=== PATIENT | female | born 1985 | race Caucasian/White ===

== ENCOUNTER → 2017-06-17 | Outpatient (CLI) | payer SELFPAY ==
[2017-06-17 18:44] LABS: HCG, SERUM QUANTITATIVE 1849 MIU/ML
== END ==
LOC: M LAB 16:35
DX: O20.0 Threatened abortion (principal)

== ENCOUNTER → 2017-06-19 | Outpatient (CLI) | payer SELFPAY ==
[2017-06-19 17:00] LABS: HCG, SERUM QUANTITATIVE 646 MIU/ML
== END ==
LOC: M LAB 16:22
DX: O20.0 Threatened abortion (principal)
CPT/HCPCS: 84702

== ENCOUNTER → 2017-06-26 | Outpatient (CLI) | payer OTHER ==
[2017-06-27 09:56] LABS: HCG, SERUM QUANTITATIVE 58 MIU/ML
== END ==
LOC: M LAB 14:17
DX: O03.4 Incomplete spontaneous abortion without complication (principal)
CPT/HCPCS: 84702

== ENCOUNTER → 2017-09-27 | Outpatient (CLI) | payer OTHER ==
[2017-09-27 18:50] LABS: BASO % 0.2 % (0.0-1.0); EOS # 0.2 10^3/uL (0.0-0.50); EOS % 1.8 % (0.0-3.0); HEMATOCRIT 36.3 % (36.0-47.0); HEMOGLOBIN 12.5 g/dl (12.0-15.5); IMMATURE GRANULOCYTE % 0.6 % (0-3.0); LYMPH # 2.3 10^3/uL (1.5-4.5); LYMPH % 25.7 % (24.0-44.0); MEAN CORPUSCULAR HEMOGLOBIN 30.9 pg (27.0-33.0); MEAN CORPUSCULAR HGB CONC 34.4 g/dl (32.0-36.5); MEAN CORPUSCULAR VOLUME 89.9 fl (80.0-96.0); MONO # 0.7 10^3/uL (0.0-0.8); NEUTROPHILS # 5.7 10^3/uL (1.8-7.7); NEUTROPHILS % 63.7 % (36.0-66.0); PLATELET COUNT, AUTOMATED 241 10^3/uL (150-450); RED BLOOD COUNT 4.04 10^6/uL (4.00-5.40)
[2017-09-27 20:43] LABS: CHLAMYDIA DNA AMPLIFICATION NEGATIVE (NEGATIVE); GC DNA AMPLIFICATION NEGATIVE (NEGATIVE)
== END ==
LOC: M SMT 15:07
DX: Z36.9 Encounter for antenatal screening, unspecified (principal); Z3A.01 Less than 8 weeks gestation of pregnancy
CPT/HCPCS: 86762

== ENCOUNTER → 2018-01-16 | Outpatient (CLI) | payer OTHER ==
[2018-01-16 13:00] LABS: HEMATOCRIT 34.6 % (36.0-47.0); HEMOGLOBIN 11.5 g/dl (12.0-15.5); MEAN CORPUSCULAR HEMOGLOBIN 30.2 pg (27.0-33.0); MEAN CORPUSCULAR HGB CONC 33.2 g/dl (32.0-36.5); MEAN CORPUSCULAR VOLUME 90.8 fl (80.0-96.0); PLATELET COUNT, AUTOMATED 242 10^3/uL (150-450); RED BLOOD COUNT 3.81 10^6/uL (4.00-5.40); RED CELL DISTRIBUTION WIDTH 12.7 % (11.5-14.5); WHITE BLOOD COUNT 10.5 10^3/uL (4.0-10.0)
[2018-01-16 13:36] LABS: GLUCOSE CHALLENGE TEST 1 HOUR 95 MG/DL (LESS THAN 140)
== END ==
LOC: M SMT 10:18
DX: Z36.89 Encounter for other specified antenatal screening (principal); Z3A.00 Weeks of gestation of pregnancy not specified
CPT/HCPCS: 82950

== ENCOUNTER → 2018-03-21 | Outpatient (REF) | payer OTHER | LOC: M LAB REF 16:58 | DX: Z34.83 Encounter for supervision of other normal pregnancy, third trimester (principal) ==

== ENCOUNTER 2018-04-22 00:42 | Inpatient (IN) | payer OTHER ==
[2018-04-22 01:46] LABS: HEMATOCRIT 40.4 % (36.0-47.0); HEMOGLOBIN 13.1 g/dl (12.0-15.5); MEAN CORPUSCULAR HEMOGLOBIN 27.9 pg (27.0-33.0); MEAN CORPUSCULAR HGB CONC 32.4 g/dl (32.0-36.5); MEAN CORPUSCULAR VOLUME 86.1 fl (80.0-96.0); PLATELET COUNT, AUTOMATED 240 10^3/uL (150-450); RED BLOOD COUNT 4.69 10^6/uL (4.00-5.40); RED CELL DISTRIBUTION WIDTH 14.7 % (11.5-14.5)
[2018-04-22] MEDS ORDERED: OXYTOCIN 30 UNITS IN 0.9% NaCl 500ML IV BAG (J2590) As Ordered (05:15)
[2018-04-22] MEDS: LIDOCAINE 1% MDV 20ML VIAL INFIL (06:20)
[2018-04-22] MEDS ORDERED: ACETAMINOPHEN 500 MG TAB PO (07:00)
[2018-04-22] MEDS ORDERED: DOCUSATE SODIUM 100 MG CAP PO (07:00)
[2018-04-22] MEDS ORDERED: DIBUCAINE 1% OINTMENT 30GM TOP (07:00)
[2018-04-22] MEDS ORDERED: IBUPROFEN 800 MG TAB PO (07:00)
[2018-04-22] MEDS ORDERED: METHYLERGONOVINE MALEATE 0.2 MG TAB PO (07:00)
[2018-04-22] MEDS: RHOGAM 300 MCG (1500 IU) INJ (J2790) IM (08:30)
[2018-04-22] MEDS: MEASLES,MUMPS,RUBELLA VACCINE INJ (MMR-II) (90707) SC (08:30)
[2018-04-22] MEDS: PRENATAL VITAMINS CHEWABLE TABLET PO (09:00)
[2018-04-23] MEDS: PRENATAL VITAMINS CHEWABLE TABLET PO (09:00)
== END 2018-04-23 11:05 | disposition home or self-care (01) | DRG 807 ==
LOC: M LDO 00:42 → M LDI 01:23 → M OBS 07:45
PROVIDERS: Advanced Practice Midwife
PROC: 10E0XZZ Delivery of Products of Conception, External Approach (ICD-10-PCS; principal; 2018-04-22)
PROC: 0HQ9XZZ Repair Perineum Skin, External Approach (ICD-10-PCS; 2018-04-22)
PROC: 10907ZC Drainage of Amniotic Fluid, Therapeutic from Products of Conception, Via Natural or Artificial Opening (ICD-10-PCS; 2018-04-22)
DX: O48.0 Post-term pregnancy (principal); Z37.0 Single live birth; Z3A.40 40 weeks gestation of pregnancy; O77.0 Labor and delivery complicated by meconium in amniotic fluid; O76 Abnormality in fetal heart rate and rhythm complicating labor and delivery; O70.0 First degree perineal laceration during delivery

== ENCOUNTER → 2018-07-25 | Outpatient (REF) | payer OTHER ==
[~2018-07-25] MED LIST: ACET50TA PO; ANUS2.5C2 TOP; COLACE PO; IBUP100SUS PO; IBUP1TAB7 PO; MAPA500T2 PO; MILKSUS PO; PRENTAB9 PO
[2018-07-27 18:42] LABS: HPV HYBRID CAPTURE II Negative (Negative)
== END ==
LOC: M LAB REF 13:02
PROVIDERS: ATTEND Advanced Practice Midwife
DX: Z12.4 Encounter for screening for malignant neoplasm of cervix (principal)
CPT/HCPCS: 87624; G0123

== ENCOUNTER → 2021-05-05 | Outpatient (CLI) | payer OTHER ==
[~2021-05-05] MED LIST changes: -ACET50TA PO; +IBUP100S44 PO; -IBUP100SUS PO; +MAPA500T17 PO
[2021-05-05 17:59] LABS: HEMATOCRIT 32.4 % (36.0-47.0); HEMOGLOBIN 11.4 g/dl (12.0-15.5); MEAN CORPUSCULAR HEMOGLOBIN 31.3 pg (27.0-33.0); MEAN CORPUSCULAR HGB CONC 35.2 g/dl (32.0-36.5); PLATELET COUNT, AUTOMATED 220 10^3/uL (150-450); RED BLOOD COUNT 3.64 10^6/uL (4.00-5.40); WHITE BLOOD COUNT 10.5 10^3/uL (4.0-10.0)
[2021-05-05 22:05] LABS: HEPATITIS C VIRUS ABY INDEX 0.1 INDEX (<0.8); HIV 1&2 SCREEN CENTAUR NEGATIVE (NEGATIVE)
[2021-05-06 13:23] LABS: GC DNA AMPLIFICATION NEGATIVE (NEGATIVE)
== END ==
LOC: M PLALAB 15:30
PROVIDERS: ATTEND Advanced Practice Midwife
DX: O09.529 Supervision of elderly multigravida, unspecified trimester (principal)

== ENCOUNTER → 2021-05-26 | Outpatient (CLI) | payer OTHER | LOC: M WHC 13:59 | PROVIDERS: ATTEND Advanced Practice Midwife | DX: O09.529 Supervision of elderly multigravida, unspecified trimester (principal); Z3A.18 18 weeks gestation of pregnancy ==

== ENCOUNTER → 2021-08-24 | Outpatient (CLI) | payer OTHER ==
[2021-08-24 17:50] LABS: HEMATOCRIT 32.5 % (36.0-47.0); HEMOGLOBIN 10.7 g/dl (12.0-15.5); MEAN CORPUSCULAR HEMOGLOBIN 29.7 pg (27.0-33.0); MEAN CORPUSCULAR HGB CONC 32.9 g/dl (32.0-36.5); MEAN CORPUSCULAR VOLUME 90.3 fl (80.0-96.0); PLATELET COUNT, AUTOMATED 211 10^3/uL (150-450); WHITE BLOOD COUNT 11.7 10^3/uL (4.0-10.0)
== END ==
LOC: M PLALAB 14:45
PROVIDERS: ATTEND Advanced Practice Midwife
DX: Z34.93 Encounter for supervision of normal pregnancy, unspecified, third trimester (principal)

== ENCOUNTER → 2021-09-01 | Outpatient (CLI) | payer OTHER | LOC: M LAB 08:22 | PROVIDERS: ATTEND Advanced Practice Midwife | DX: O99.810 Abnormal glucose complicating pregnancy (principal) ==

== ENCOUNTER → 2021-09-22 | Outpatient (REF) | payer OTHER | LOC: M PLALAB 15:13 | PROVIDERS: ATTEND Obstetrics & Gynecology | DX: Z36.89 Encounter for other specified antenatal screening (principal); Z3A.36 36 weeks gestation of pregnancy ==

== ENCOUNTER → 2021-09-22 | Outpatient (REF) | payer OTHER | LOC: M SFHCWAGY 16:55 | PROVIDERS: ATTEND Obstetrics & Gynecology | DX: Z36.89 Encounter for other specified antenatal screening (principal); Z3A.36 36 weeks gestation of pregnancy ==

== ENCOUNTER 2021-10-20 22:57 | Inpatient (IN) | payer OTHER ==
[~2021-10-20] VITALS: Ht 157.5 cm; Wt 77.7 kg
[2021-10-20] MEDS ORDERED: OXYTOCIN 30 UNITS IN 0.9% NaCl 500ML IV BAG (J2590) As Ordered ONE (23:10)
[2021-10-20] MEDS ORDERED: LIDOCAINE 1% MDV 50ML VIAL As Ordered ONE (23:37)
[2021-10-20] MEDS ORDERED: miSOPROStol 50MCG 1/2 TABLET PO ONE (23:55)
[2021-10-21] VITALS (7 sets, daily range): BP systolic 116–148; BP diastolic 58–83
[2021-10-21] MEDS ORDERED: TRANEXAMIC ACID INJection 1,000 MG in NS 100 ML IV PRN (00:05)
[2021-10-21] MEDS ORDERED: ACETAMINOPHEN 500 MG TAB PO PRN (00:05)
[2021-10-21] MEDS ORDERED: MEASLES,MUMPS,RUBELLA VACCINE INJ (MMR-II) (90707) SC SCH (00:05)
[2021-10-21] MEDS ORDERED: OXYTOCIN DRIP 30 UNITS in IV 1 EA IV PRN (00:05)
[2021-10-21] MEDS ORDERED: CARBOPROST TROMETHAMINE 250 MCG/ML AMP IM PRN (00:05)
[2021-10-21] MEDS ORDERED: DOCUSATE SODIUM 100MG CAPSULE PO PRN (00:05)
[2021-10-21] MEDS ORDERED: RHOGAM 300 MCG (1500 IU) INJ (J2790) IM SCH (00:05)
[2021-10-21] MEDS ORDERED: DIBUCAINE 1% OINTMENT 30GM TOP PRN (00:05)
[2021-10-21] MEDS ORDERED: METHYLERGONOVINE MALEATE 0.2 MG TAB PO PRN (00:05)
[2021-10-21] MEDS ORDERED: METHYLERGONOVINE MALEATE 0.2 MG/ML VIAL (J2210) IM PRN (00:05)
[2021-10-21] MEDS ORDERED: IBUPROFEN 600MG TAB PO PRN (00:05)
[2021-10-21] MEDS: PRENATAL VITAMINS CHEWABLE TABLET PO SCH (08:58)
[2021-10-22 06:00] VITALS: BP 109/60
[2021-10-22] MEDS: PRENATAL VITAMINS CHEWABLE TABLET PO SCH (07:46)
[2021-10-22 08:00] VITALS: BP 109/60
== END 2021-10-22 11:55 | disposition home or self-care (01) | DRG 807 ==
LOC: M LDO 22:57 → M LDI 23:07 → M OBS 10-21 01:14
PROVIDERS: ADMIT Obstetrics & Gynecology; ATTEND Obstetrics & Gynecology
PROC: 10E0XZZ Delivery of Products of Conception, External Approach (ICD-10-PCS; principal; 2021-10-20)
PROC: 0HQ9XZZ Repair Perineum Skin, External Approach (ICD-10-PCS; 2021-10-20)
DX: O24.420 Gestational diabetes mellitus in childbirth, diet controlled (principal); Z37.0 Single live birth; O62.3 Precipitate labor; Z3A.39 39 weeks gestation of pregnancy; O77.0 Labor and delivery complicated by meconium in amniotic fluid; O70.0 First degree perineal laceration during delivery